=== PATIENT | female | born 1985 | race Caucasian/White ===

== ENCOUNTER 2018-11-08 19:45 | Emergency (ER) | payer BC ==
--- NOTE | 2018-11-08 19:50 | PDOC ---
Rapid Medical Evaluation Time Seen by Provider: 11/08/18 19:48 Medical Evaluation: 11/08/18 19:48 HPI:c/o bloody stool and bloody vomit works in health care; no bacteria in stool as per PCP feeling sick over the last 2 weeks PE: No gross deficits ORDERS: Labs Discharge Disposition - Diagnosis Vomiting and diarrhea - Referrals - Patient Instructions - Post Discharge Activity
[2018-11-08 19:51] VITALS: BMI 27.3
[2018-11-08 20:57] LABS: BASO % 0.7 % (0-2.0); EOS % 1.7 % (0-4.5); HEMATOCRIT 41.8 % (32.4-45.2); HEMOGLOBIN 13.9 GM/dL (10.7-15.3); LYMPH % 43.1 % (8-40); MCH 30.1 pg (25.7-33.7); MCHC 33.2 g/dl (32.0-36.0); MEAN CELL VOLUME 90.5 fl (80-96); MEAN PLT VOLUME 8.5 fl (7.5-11.1); NEUT % 47.5 % (42.8-82.8); PLATELET COUNT 287 K/MM3 (134-434); RBC 4.62 M/mm3 (3.60-5.2); RDW 14.2 % (11.6-15.6); WHITE BLOOD COUNT 4.7 K/mm3 (4.0-10.0)
--- NOTE | 2018-11-08 21:05 | PDOC ---
History of Present Illness - General Chief Complaint: Diarrhea Stated Complaint: diarrhea Time Seen by Provider: 11/08/18 19:48 History Source: Patient - History of Present Illness Initial Comments: 11/08/18 21:00 33 year old female c/o diarrhea x 2 weeks yesterday with one episode of bloody diarrhea. reports also vomiting blood tinged x 1 .today with 2 episodes of diarrhea. denies any recent travel, recent change in diet, patient reports decreased appetite. one episode of nausea. Past History - Past Medical History Allergies/Adverse Reactions: Allergies Allergy/AdvReac Type Severity Reaction Status Date / Time No Known Allergies Allergy Verified 11/08/18 19:51 Home Medications: Ambulatory Orders Famotidine [Pepcid] 40 mg PO DAILY #20 tablet 11/08/18 Ondansetron HCl [Zofran] 4 mg PO DAILY PRN #7 tablet 11/08/18 Asthma: Yes COPD: No - Suicide/Smoking/Psychosocial Hx Smoking History: Current every day smoker Information on smoking cessation initiated: No Review of Systems - Review of Systems Able to Perform ROS?: Yes Is the patient limited Nigerian proficient: No Constitutional: No: Symptoms Reported, See HPI, Chills, Diaphoresis, Fever, Loss of Appetite, Malaise, Night Sweats, Weakness, Weight Stable, Unintentional Wgt. Loss, Unexplained wgt Loss, Other ABD/GI: Yes: Diarrhea, Nausea, Poor Appetite, Poor Fluid Intake, Vomiting *Physical Exam - Vital Signs Last Vital Signs Temp Pulse Resp BP Pulse Ox 98.7 F 81 18 133/98 99 11/08/18 19:48 11/08/18 19:48 11/08/18 19:48 11/08/18 19:48 11/08/18 19:48 - Physical Exam General Appearance: Yes: Appropriately Dressed Respiratory/Chest: positive: Lungs Clear, Normal Breath Sounds Rectal Exam: positive: heme negative stool, normal exam, normal rectal tone. negative: hemorrhoids ED Treatment Course - LABORATORY CBC & Chemistry Diagram: 11/08/18 20:41 11/08/18 21:30 Progress Note - Progress Note Progress Note: vomiting and diarrhea P: IVF famotidine zofran ua: currently menstruating. no urinary symptoms. *DC/Admit/Observation/Transfer Diagnosis at time of Disposition: Vomiting and diarrhea - Discharge Dispostion Disposition: HOME - Prescriptions Prescriptions: Famotidine [Pepcid] 40 mg PO DAILY #20 tablet Ondansetron HCl [Zofran] 4 mg PO DAILY PRN #7 tablet PRN Reason: Nausea - Referrals Referrals: ON STAFF,NOT [Primary Care Provider] - - Patient Instructions Printed Discharge Instructions: Webster Diet Additional Instructions: Additional Instructions: * Please call your personal physician to report your Emergency Department visit and to report your progress, if any. * If there is no improvement in symptoms in 2 days call your physician. * Return to the Emergency Department for any worsening symptoms. - Post Discharge Activity Forms/Work/School Notes: Back to Work
[2018-11-08 21:12] LABS: INR 0.93 (0.83-1.09)
[2018-11-08 21:14] LABS: RETICULOCYTES 1.24 % (0.5-1.5)
[2018-11-08] MEDS ORDERED: ONDANSETRON 4 MG/2 ML VIAL IVPB ONE (21:14)
[2018-11-08] MEDS ORDERED: FAMOTIDINE 20 MG/50 ML IVPB 20 MG/50 ML MG IVPB ONE ×2 (21:14→22:27)
[2018-11-08] MEDS ORDERED: SODIUM CHLORIDE 1,000 ML IV STA (21:14)
[2018-11-08 22:07] LABS: EPI CELLS 14.4 /HPF (0-5/HPF); HYALINE CASTS 12 /lpf (0-8); PH,URINE 5.5 (5.0-8.0); URINE APPEARANCE CLOUDY; URINE BILIRUBIN NEGATIVE (NEGATIVE); URINE COLOR YELLOW; URINE GLUCOSE (UA) NEGATIVE (NEGATIVE); URINE KETONE 1+ (NEGATIVE); URINE LEUK ESTERASE 1+ (NEGATIVE); URINE NITRITE NEGATIVE (NEGATIVE); URINE PROTEIN TRACE (NEGATIVE); URINE UROBILINOGEN 0.2 mg/dL (0.2-1.0); URINE WBC 8 /hpf (0-5)
[2018-11-08 22:14] LABS: ALBUMIN 4.2 g/dl (3.4-5.0); BILIRUBIN,TOTAL 0.7 mg/dL (0.2-1); BLOOD UREA NITROGEN 14.1 mg/dL (7-18); CREATININE 0.8 mg/dL (0.55-1.3); TOT PROT 7.6 g/dl (6.4-8.2)
[2018-11-08] MEDS ORDERED: ONDANSETRON 4 MG/2 ML VIAL ONE (22:26)
[2018-11-08 22:55] VITALS: BP 116/84; PULSE 79; TEMP 97.8
[2018-11-08 23:14] LABS: URINE RBC 19.4 /hpf (0-4)
== END 2018-11-08 22:55 | disposition home or self-care (01) ==
LOC: JER 19:45
PROC: 3E033GC Introduction of Other Therapeutic Substance into Peripheral Vein, Percutaneous Approach (ICD-10-PCS; principal; 2018-11-08)
PROC: 3E033GC Introduction of Other Therapeutic Substance into Peripheral Vein, Percutaneous Approach (ICD-10-PCS; 2018-11-08)
DX: R11.10 Vomiting, unspecified (principal); R19.7 Diarrhea, unspecified
CPT/HCPCS: 36415; 80053; 81003; 82272; 83690; 84703; 85025; 85044; 85610; 86850; 86900; 86901; 99282-25; J7030

== ENCOUNTER 2019-02-12 17:49 | Emergency (ER) | payer BC ==
[2019-02-12 17:56] VITALS: BP 115/74; PULSE 90; TEMP 97.9; BMI 27.4
--- NOTE | 2019-02-12 18:13 | PDOC ---
History of Present Illness - General Chief Complaint: Vaginal Bleeding Stated Complaint: VAGINAL BLEEDING/ABD PAIN Time Seen by Provider: 02/12/19 18:12 History Source: Patient Past History - Past Medical History Allergies/Adverse Reactions: Allergies Allergy/AdvReac Type Severity Reaction Status Date / Time No Known Allergies Allergy Verified 02/12/19 17:56 Home Medications: Ambulatory Orders Famotidine [Pepcid] 40 mg PO DAILY #20 tablet 11/08/18 Ondansetron HCl [Zofran] 4 mg PO DAILY PRN #7 tablet 11/08/18 Metoclopramide HCl [Reglan -] 10 mg PO DAILY #10 tablet 02/12/19 Asthma: Yes COPD: No - Psycho Social/Smoking Cessation Hx Smoking History: Never smoked *Physical Exam - Vital Signs Last Vital Signs Temp Pulse Resp BP Pulse Ox 97.9 F 90 18 115/74 100 02/12/19 17:52 02/12/19 17:52 02/12/19 17:52 02/12/19 17:52 02/12/19 17:52 ED Treatment Course - LABORATORY CBC & Chemistry Diagram: 02/12/19 18:33 02/12/19 18:33 Discharge - Discharge Information Problems reviewed: Yes Clinical Impression/Diagnosis: Vomiting and diarrhea Condition: Stable Disposition: HOME - Admission No - Additional Discharge Information Prescriptions: Metoclopramide HCl [Reglan -] 10 mg PO DAILY #10 tablet - Follow up/Referral Referrals: Ricardo Santos [Primary Care Provider] - - Patient Discharge Instructions Patient Printed Discharge Instructions: DI for Threatened Additional Instructions: You were seen in the ER for abdominal pain and vaginal bleeding. Your bloodwork was normal. Your ultrasound showed normal heartrate in the fetus, who was also moving normally. Your pelvic exam showed a small amount of blood. Please see your uplands division director as soon as possible, in the next 2 days. Please return to the ER if you develop high fevers, weakness, chest pain, shortness of breath, severe abdominal pain, or vaginal bleeding that fills a pad at once. - Post Discharge Activity Work/Back to School Note: Back to Work
[2019-02-12] MEDS ORDERED: METOCLOPRAMIDE HCL INJECTION 10 MG/2 ML VIAL IVPUSH ONE (18:15)
[2019-02-12] MEDS ORDERED: METOCLOPRAMIDE HCL INJECTION 10 MG/2 ML VIAL ONE (18:19)
[2019-02-12] MEDS ORDERED: ACETAMINOPHEN INJECTION 100 ML IVPB ONE ×2 (18:20→19:50)
--- NOTE | 2019-02-12 18:24 | PDOC ---
Attending Attestation - Resident Resident Name: Emmett Steel - ED Attending Attestation I have performed the following: I have examined & evaluated the patient, The case was reviewed & discussed with the resident, I agree w/resident's findings & plan - HPI HPI: 02/12/19 18:26 33 YOF at presenting with vaginal spotting ultrasound today, well being after sono today, n/v x 5 episodes, mild vaginal spotting intermittent epigastric cramping. ate gyro last night. no other sick contacts. OB Dr Campo, in [place] rx'd anti nausea medicine, which she hasn't tried yet. denies trauma or intercourse. 02/12/19 19:08 - Physicial Exam PE: 02/12/19 18:24 Agree with the resident's HPI and PE as documented in the electronic medical record. NAD, well appearing, EOMI, PERRL, nl conjunctiva, anicteric; neck supple. lungs clear, RRR, abdomen soft diffusely tender, worse in epigastrium and periumbilical region. No rebound, no guarding. Back nontender. MATTHEWS x4, no focal neuro deficits. No peripheral edema. normal color for ethnicity, WWP. , pelvic exam performed with myself as slab stripper with resident, see documentation: normal external genitalia, no lesions, scant blood vaginal vault with brown discharge at cervical os, no CMT, no adnexal tenderness. Smooth and pink cervix, closed. 02/12/19 18:31 02/12/19 19:09 02/13/19 17:09 - Medical Decision Making 02/12/19 18:24 Vital Signs Temp Pulse Resp BP Pulse Ox 97.9 F 90 18 115/74 100 02/12/19 17:52 02/12/19 17:52 02/12/19 17:52 02/12/19 17:52 02/12/19 17:52 DDx female VB: ectopic , miscarriage, demise, subchorionic hematoma, retained POC, normal first trimester bleeding, UTI in in . Fibroid uterus, vaginitis, infection, electrolyte/metabolic derangements, anemia. Rh positive, no rhogam indicated - from previous. VS wnl, normotensive, no tachy or hypoxia/respiratory distress. abdomen benign on reeval and no peritoneal findings, no VB here, controlled Beta hcg appropriate. remainder of labs wnl. LFTs/lipase wnl. UA prelim neg for bacteria/infection, Bedside pelvic US performed for female with VB and /or abdominal pain. views obtained: tv and sagittal uterus, findings include live IUP visualized dated at, FHR 175-180 bpm. Impression: live IUP. OB followup, with Dr Campo bleeding precautions; return to ED if persistent and heavy vaginal bleeding, persistent pelvic pain not relieved by your prescribed medications, dizziness, shortness of breath, new and persistent fevers, other foul smelling discolored vaginal discharge, or for any other concerns. rx reglan prn for n/v in , also has antiemetic at home rx'd by her primary chief operator lock tender. 02/12/19 18:31 02/12/19 19:07 02/13/19 17:10 02/13/19 17:10
[2019-02-12] MEDS ORDERED: SODIUM CHLORIDE 0.9% 500 ML INFUS.BAG IV ONE (18:28)
[2019-02-12] MEDS ORDERED: FAMOTIDINE 20 MG/50 ML IVPB 20 MG/50 ML MG IVPB ONE ×2 (18:28→18:37)
[2019-02-12] MEDS ORDERED: MAG HYDROX/AL HYDROX/SIMETH 30 ML UNIT-DOSE CUP PO ONE (18:28)
[2019-02-12] MEDS ORDERED: MAG HYDROX/AL HYDROX/SIMETH 30 ML UNIT-DOSE CUP ONE (18:37)
[2019-02-12 18:42] LABS: URINE APPEARANCE CLEAR; URINE BILIRUBIN NEGATIVE (NEGATIVE); URINE COLOR YELLOW; URINE GLUCOSE (UA) NEGATIVE (NEGATIVE); URINE KETONE 1+ (NEGATIVE); URINE LEUK ESTERASE NEGATIVE (NEGATIVE); URINE NITRITE NEGATIVE (NEGATIVE); URINE PROTEIN NEGATIVE (NEGATIVE)
[2019-02-12 18:45] LABS: BASO % 0.2 % (0-2.0); EOS % 0.6 % (0-4.5); HEMATOCRIT 39.8 % (32.4-45.2); HEMOGLOBIN 13.3 GM/dL (10.7-15.3); LYMPH % 16.8 % (8-40); MCH 29.3 pg (25.7-33.7); MCHC 33.3 g/dl (32.0-36.0); MEAN CELL VOLUME 87.8 fl (80-96); MEAN PLT VOLUME 8.2 fl (7.5-11.1); MONO % 6.7 % (3.8-10.2); NEUT % 75.7 % (42.8-82.8); PLATELET COUNT 208 K/MM3 (134-434); RBC 4.53 M/mm3 (3.60-5.2); WHITE BLOOD COUNT 5.3 K/mm3 (4.0-10.0)
[2019-02-12] MEDS ORDERED: ACETAMINOPHEN 1000 MG/100 ML VIAL (NON FORMULARY) IVPB ONE (19:07)
[2019-02-12 19:16] LABS: ALBUMIN 3.9 g/dl (3.4-5.0); BILIRUBIN,TOTAL 0.6 mg/dL (0.2-1); BLOOD UREA NITROGEN 9.8 mg/dL (7-18); CALCIUM 8.8 mg/dL (8.5-10.1); CREATININE 0.6 mg/dL (0.55-1.3); POTASSIUM 3.9 mmol/L (3.5-5.1)
== END 2019-02-12 20:07 | disposition home or self-care (01) ==
LOC: JER 17:49
PROC: BY49ZZZ Ultrasonography of First Trimester, Single Fetus (ICD-10-PCS; principal; 2019-02-12)
PROC: 3E033GC Introduction of Other Therapeutic Substance into Peripheral Vein, Percutaneous Approach (ICD-10-PCS; 2019-02-12)
PROC: 3E033NZ Introduction of Analgesics, Hypnotics, Sedatives into Peripheral Vein, Percutaneous Approach (ICD-10-PCS; 2019-02-12)
DX: O26.891 Other specified pregnancy related conditions, first trimester (principal); O20.0 Threatened abortion; R11.2 Nausea with vomiting, unspecified; R19.7 Diarrhea, unspecified; Z3A.11 11 weeks gestation of pregnancy
CPT/HCPCS: 36415; 76815; 80053; 81003; 83690; 84702; 85025; 87086; 87186; 99284-25; J0131

== ENCOUNTER 2019-08-29 15:40 | Inpatient (IN) | payer BC ==
[2019-08-29] MEDS ORDERED: OXYTOCIN 30 UNITS in 0.9% NS 30 UNIT/500 ML INFUS.BAG IVPB SCH (17:00)
[2019-08-29] MEDS ORDERED: ELECTROLYTE-148 SOLN 1,000 ML IV SCH (17:00)
[2019-08-29 17:01] VITALS: BMI 29.2
[2019-08-29 17:02] LABS: BASO % 0.5 % (0-2.0); EOS % 2.1 % (0-4.5); HEMATOCRIT 39.7 % (32.4-45.2); HEMOGLOBIN 13.3 GM/dL (10.7-15.3); LYMPH % 28.9 % (8-40); MCH 29.2 pg (25.7-33.7); MCHC 33.6 g/dl (32.0-36.0); MEAN CELL VOLUME 86.9 fl (80-96); MEAN PLT VOLUME 9.3 fl (7.5-11.1); MONO % 6.8 % (3.8-10.2); NEUT % 61.7 % (42.8-82.8); PLATELET COUNT 203 K/MM3 (134-434); RBC 4.57 M/mm3 (3.60-5.2); RDW 13.9 % (11.6-15.6); WHITE BLOOD COUNT 7.3 K/mm3 (4.0-10.0)
[2019-08-29 17:13] LABS: INR 0.96 (0.83-1.09); PROTHROMBIN TIME (PATIENT) 11.3 SEC (9.7-13.0)
[2019-08-29] MEDS: ALBUTEROL SO4 HFA INHALER IH PRN (17:15)
[2019-08-29] MEDS ORDERED: ALBUTEROL SO4 HFA INHALER IH PRN (17:26)
[2019-08-29 17:27] LABS: BLOOD UREA NITROGEN 6.2 mg/dL (7-18); CALCIUM 8.7 mg/dL (8.5-10.1); CREATININE 0.5 mg/dL (0.55-1.3); POTASSIUM 3.6 mmol/L (3.5-5.1)
[2019-08-29] MEDS ORDERED: OXYTOCIN 30 UNITS in 0.9% NS 30 UNIT/500 ML INFUS.BAG IVPB ONE (18:01)
--- NOTE | 2019-08-29 18:56 | HP ---
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: Alzheimer's, CVA, Dementia, Migraine, Multiple Sclerosis, Peripheral Neuropathy, Parkinson's, Seizure, Syncope, TIA, Vertigo, Other Cardiovascular: No: AFIB, Aneurysm, Aortic Insufficiency, Aortic Stenosis, CAD, CHF, Deep Vein Thrombosis, HTN, Hyperlipdemia, AK, Mitral Insufficiency, Mitral Stenosis, Murmur, Pulmonary Hypertension, Other Pulmonary: No: Asthma, Bronchitis, Cancer, COPD, O2 Dependent, Pneumonia, Previously Intubated, Pulmonary Embolus, Pulmonary Fibrosis, Sleep Apnea, Other Gastrointestinal: No: Ascites, Cancer, Constipation, Crohn's Disease, Diverticulitis, Diverticulosis, Esophageal Varices, Gastritis, GERD, GI Bleed, Hemorrhoids, Hiatal Hernia, Inflamatory Bowel Disease, Irritable Bowel Disease, Pancreatitis, Peptic Ulcer Disease, Ulcerative Colitis, Other Hepatobiliary: No: Cirrhosis, Cholelithiasis, Cholecystitis, Choledocholit hiasis, Hepatitis A, Hepatitis B, Hepatitis C, Other Renal/: No: Renal Failure, Renal Inusuff, BPH, Cancer, Hematuria, Hemodialysis, Neurogenic Bladder, Renal Calculi, UTI, Other ...: 5 ...Para: 2 ...: 2 ...Spon : 2 ...Living Children: 2 ...Multiple Gestation: 0 ... Weeks Gestation by Dates: 40.2 ...EDC by Dates: 08/27/19 ...EDC by Sono: 08/27/19 Heme/Onc: No: Anemia, B12 Deficiency, Bleeding Disorder, Cancer, Current Chemotherapy, Current Radiation Therapy, Hemochromatosis, Hypercoaguable State, Myeloproliferative Synd, Sickle Cell Disease, Sickle Cell Trait, Thrombocytopenia, Other Infectious Disease: No: AIDS, C-Diff, Herpes Zoster, HIV, MRSA, STD's, Tuberculosis, VREF, Other Psych: No: Addictions, Anxiety, Bipolar, Depression, Panic, Psychosis, Schizophrenia, Other Musculoskeletal: No: Bursitis, Chronic low back pain, Hemiparesis, Hemiplegia, Osteoarthritis, Paraplegia, Other Rheumatology: No: Fibromyalgia, Gout, Lupus, Rheumatoid Arthritis, Sarcoidosis, Vasculitis, Other ENT: No: Allergic Rhinitis, Sinusitis, Other Endocrine: No: Gl[place]'s Disease, Symsonia's Disease, Diabetes Insipidus, Diabetes Mellitus, Hyperparathyroidism, Hyperthyroidism, Hypothyroidism, Osteopenia, SIADH, Other Dermatology: No: Basal Cell, Cellulitis, Eczema, Melanoma, Psoriasis, Squamous Cell, Other - Past Surgical History Past Surgical History: Yes: None Hx Myomectomy: No Hx Transabdominal Cerclage: No - Advance Directives Advance Directives: Yes: Living Will - Smoking History Smoking history: Never smoked Have you smoked in the past 12 months: No - Alcohol/Substance Use Hx Alcohol Use: No History of Substance Use: reports: None - Social History Usual Living Arrangement: Yes: With Significant Other Do you think of yourself as: Straight/Heterosexual ADL: Independent History of Recent Travel: No Home Medications - Allergies Allergies/Adverse Reactions: Allergies Allergy/AdvReac Type Severity Reaction Status Date / Time No Known Allergies Allergy Verified 02/12/19 17:56 - Home Medications Home Medications: Ambulatory Orders Vitamins (Sjr) - 1 tab PO DAILY 08/29/19 Family Medical History Family History: Denies Review of Systems - Review of Systems Constitutional: reports: No Symptoms Eyes: reports: No Symptoms HENT: reports: No Symptoms Neck: reports: No Symptoms Cardiovascular: reports: No Symptoms Respiratory: reports: No Symptoms Gastrointestinal: reports: No Symptoms Genitourinary: reports: No Symptoms Breasts: reports: No Symptoms Reported Musculoskeletal: reports: No Symptoms Integumentary: reports: No Symptoms Neurological: reports: No Symptoms Endocrine: reports: No Symptoms Hematology/Lymphatic: reports: No Symptoms Psychiatric: reports: No Symptoms Physical Exam - Maternity Vital Signs: Vital Signs Temperature 98.4 F 08/29/19 18:00 Pulse Rate 90 08/29/19 18:00 Respiratory Rate 08/29/19 18:00 Blood Pressure 111/67 08/29/19 18:00 O2 Sat by Pulse Oximetry (%) Constitutional: Yes: Well Nourished, No Distress, Calm Eyes: Yes: WNL, Conjunctiva Clear, EOM Intact HENT: Yes: WNL, Atraumatic, Normocephalic Neck: Yes: WNL, Supple, Trachea Midline Cardiovascular: Yes: WNL, Regular Rate and Rhythm Lungs: Clear to auscultation Breast(s): Yes: WNL - Abdominal Exam/OB Number of Fetuses: Single Presentation: Vertex Contractions: Yes Regularity: Irregular Intensity: Unaware Monitor Mode: External Heart Rate Location: [facility] Category: I Accelerations: Uniform Decelerations: None - Vaginal Exam/OB Vaginal Bleeding: No Speculum Exam: No Dilatation (cm): 2 Effacement (%): 60 Amniotic Membrane Status: Ruptured Nitrazine Test: Positive Amniotic Fluid: Yes: Clear Presentation: Vertex/Position Station: -2 - Physical Exam Musculoskeletal: Yes: WNL Extremities: Yes: WNL Edema: Yes Edema: LUE: 1+, RUE: 1+, LLE: 1+, RLE: 1+ Integumentary: Yes: WNL Deep Tendon Reflex Grade: Normal +2 ...Motor Strength: WNL Psychiatric: Yes: WNL, Alert, Oriented - Labs Lab Results: CBC, BMP 08/29/19 16:05 08/29/19 16:05 Hemorrhage Risk Assessment - Risk Factors Medium Risk Factors: Yes: None High Risk Factors: Yes: None Risk Score: 1 Risk Level: Medium Risk Assessment/Plan for pitoicn, anticipate
[2019-08-29] MEDS ORDERED: DEXTROSE 5%-LACTATED RINGERS 1,000 ML IV SCH (19:00)
[2019-08-29] MEDS ORDERED: FENTANYL/BUPIVACAINE/NS/PF - PCEA - 50 ML DISP.SYRIN EP ONE (21:11)
[2019-08-29] MEDS ORDERED: PCA PUMP NR ONE (21:11)
[2019-08-29] MEDS ORDERED: NALOXONE HCL 0.4 MG/ML VIAL IVPUSH PRN (21:13)
[2019-08-29] MEDS ORDERED: FENTANYL/BUPIVACAINE/NS/PF - PCEA - 50 ML DISP.SYRIN EP SCH (21:15)
[2019-08-30] MEDS ORDERED: FENTANYL/BUPIVACAINE/NS/PF - PCEA - 50 ML DISP.SYRIN EP ONE ×2 (00:33→03:55)
--- NOTE | 2019-08-30 05:16 | PN ---
Progress Note (short form) - Note Progress Note: 130 am 4 cm, continue pitocin, still same cervix, asking for top off, uc q 3 min,
[2019-08-30] MEDS ORDERED: SUCCINYLCHOLINE CHLORIDE 200 MG/10 ML SYRINGE ONE (05:18)
[2019-08-30] MEDS ORDERED: PROPOFOL 20 ML ONE (05:18)
--- NOTE | 2019-08-30 05:18 | PN ---
Progress Note (short form) - Note Progress Note: 5 am, , recurrent late deccel, still 4 cm cervix, uc q 3 min, top off given for pain, we thought it is from top off for deccels, but still cat 2 nst after 45 min, will do c sections
[2019-08-30] MEDS ORDERED: OXYTOCIN 20 UNITS in 0.9% NS 20 UNIT/1,000 ML INFUS.BAG IV ONE ×3 (05:30→07:46)
[2019-08-30] MEDS ORDERED: morphine SULFATE/Preservative Free 0.5 MG/ML (1cc Syringe) ONE ×5 (05:44)
[2019-08-30] MEDS ORDERED: MIDAZOLAM HCL 2 MG/2 ML SINGLE DOSE VIAL ONE (05:52)
[2019-08-30] MEDS ORDERED: METHYLERGONOVINE MALEATE 0.2 MG/1 ML AMP IM PRN (06:49)
[2019-08-30] MEDS ORDERED: oxyCODONE HCL 5 MG TABLET PO PRN (06:49)
--- NOTE | 2019-08-30 06:55 | OP ---
Operative Note - Note: Operative Date: 08/30/19 Pre-Operative Diagnosis: non reassuring fh tracing Operation: primary lt c s Findings: ca both feet x 2 Post-Operative Diagnosis: Same as Pre-op Surgeon: Melvin Campo Trust Advisor: Prasanna Rios Anesthesiologist/PRODUCT DISTRIBUTION SPECIALIST: Shahab Shah Anesthesia: Epidural Estimated Blood Loss (mls): 350 Operative Report Dictated: Yes
[2019-08-30] MEDS ORDERED: OXYTOCIN 20 UNITS in 0.9% NS 20 UNIT/1,000 ML INFUS.BAG IV SCH (07:00)
[2019-08-30] MEDS ORDERED: IBUPROFEN 800 MG/8 ML IJ IVPB ONE (07:24)
[2019-08-30] MEDS: IBUPROFEN 800 MG/8 ML IJ IVPB PRN ×2 (07:30→15:07)
[2019-08-30 08:59] LABS: POC NITRAZINE POS
[2019-08-30] MEDS: PRENATAL VITAMINS W/ FOLIC ACID TABLET (FP) PO SCH (10:18)
[2019-08-30] MEDS: oxyCODONE HCL 5 MG TABLET PO PRN (10:44)
[2019-08-30] MEDS: ALBUTEROL SO4 HFA INHALER IH PRN (10:44)
[2019-08-30] MEDS: SIMETHICONE 80 MG TAB.CHEW (FP) PO PRN ×2 (18:13→20:19)
[2019-08-30] MEDS: ACETAMINOPHEN 325 MG TABLET (FP) PO PRN (18:14)
[2019-08-30] MEDS: IBUPROFEN 600 MG TABLET (FP) PO PRN (20:18)
[2019-08-30] MEDS ORDERED: SENNOSIDES/DOCUSATE COMBO (SENNA PLUS) TABLET (UD) PO PRN (22:00)
[2019-08-31] MEDS: IBUPROFEN 800 MG/8 ML IJ IVPB PRN (00:41)
[2019-08-31] MEDS: BISACODYL 10 MG SUPP.RECT RC PRN ×2 (05:58→16:30)
[2019-08-31] MEDS: SIMETHICONE 80 MG TAB.CHEW (FP) PO PRN ×4 (05:58→20:44)
[2019-08-31] MEDS: IBUPROFEN 600 MG TABLET (FP) PO PRN ×4 (05:59→20:44)
[2019-08-31] MEDS: oxyCODONE HCL 5 MG TABLET PO PRN ×4 (05:59→20:44)
[2019-08-31 08:26] LABS: BASO % 0.2 % (0-2.0); EOS % 0.6 % (0-4.5); HEMATOCRIT 32.7 % (32.4-45.2); HEMOGLOBIN 10.9 GM/dL (10.7-15.3); LYMPH % 10.5 % (8-40); MCHC 33.4 g/dl (32.0-36.0); MEAN CELL VOLUME 86.7 fl (80-96); MEAN PLT VOLUME 8.4 fl (7.5-11.1); MONO % 4.9 % (3.8-10.2); NEUT % 83.8 % (42.8-82.8); PLATELET COUNT 185 K/MM3 (134-434); RBC 3.77 M/mm3 (3.60-5.2); WHITE BLOOD COUNT 10.7 K/mm3 (4.0-10.0)
--- NOTE | 2019-08-31 09:15 | OP ---
DATE OF OPERATION: 08/30/2019 PREOPERATIVE DIAGNOSIS: Category 2 nonreassuring heart rate tracing and remote from delivery. POSTOPERATIVE DIAGNOSIS: Cord around the foot twice for both feet. PROCEDURE: Primary low transverse section. SURGEON: Melvin Sorensen MD BRUISE TRIMMER: AVIS Talamantes BLOOD LOSS: About 350. PATHOLOGY: Placenta. INDICATIONS: [id number] female patient, 40 weeks and 3 days , came into the hospital with spontaneous rupture of membranes on August 28 at about 1:00 in the afternoon, and patient's cervix about 1-2 cm, and patient had Pitocin started, and the patient progressed very slowly to 3-4 cm around 7:00 and progressed to be 3-4 cm still around 10:30, 11:00. Patient already had epidural, and the patient still the same around 2:00 in the morning. About 5:00 in the morning patient is complaining of a lot of pain. Epidural is wearing off. Top-off was given. At this time patient had recurrent late decelerations, category 2 tracing for almost 45 minutes to an hour. The patient's cervix still 3-4 cm, -2, and 60% and very thick and is remote on delivery around 5:00, and decision was made at this time with nonreassuring heart rate tracing and remote from delivery. DESCRIPTION OF PROCEDURE: Patient was taken to the OR, placed on the operating table in supine position. Patient already had epidural anesthesia, so patient has more top-off and patient is comfortable. Patient's abdomen and pelvis were prepped and draped in the usual sterile manner. Pfannenstiel incision was made. Incisions were made through the skin and subcutaneous tissue until the fascia was nicked in the midline and the fascia extended bilaterally. Intraperitoneal cavity was entered. Bladder flap was not created. Low transverse segment was entered, baby delivered from LOT presentation, and cord around both feet twice was seen, and baby was handed over to construction electrician after umbilical cord doubly clamped and cut. Placenta was removed, uterus closed in single layer, first layer interlocking Vicryl sutures. Good hemostasis. Both gutters cleaned. Both ovaries, fallopian tubes, and uterus were within normal limits. No complications, draining clear urine. Blood loss about 350 mL. The peritoneum was closed. Fascia was closed. Skin was closed, transferred to recovery room in stable condition. MELVIN SORENSEN MD [id number]
[2019-08-31] MEDS ORDERED: DIPHTH,PERTUSS(ACELL),TET 0.5 ML DISP.SYRIN IM ONE (10:00)
[2019-08-31] MEDS: PRENATAL VITAMINS W/ FOLIC ACID TABLET (FP) PO SCH (10:19)
[2019-08-31 11:07] VITALS: TEMP 98
[2019-08-31 20:18] VITALS: PULSE 88
--- NOTE | 2019-08-31 20:20 | PN ---
Post Progress Note Post Day: 1 Type of Delivery: Primary C/S Vital Signs: Vital Signs Temperature 98.0 F 08/31/19 20:17 Pulse Rate 88 08/31/19 20:17 Respiratory Rate 20 08/31/19 20:17 Blood Pressure 116/72 08/31/19 20:17 O2 Sat by Pulse Oximetry (%) 99 08/30/19 08:39 Breast Exam: Yes: Soft Uterus: Yes: Fundus Firm, Fundus below umbilicus, Non-tender Incision: Yes: Dressing dry and intact, Sutures intact Abdomen/GI: Yes: Abdomen soft, Passing flatus, Tolerating PO Lochia: Yes: Serosa Lochia, amount: Small Extremities: Yes: Calves non-tender Perineum: Yes: Intact Activity: Ambulating (dc pt home tomorrow) - Labs Labs: CBC WBC 10.7 K/mm3 (4.0-10.0) H 08/31/19 08:04 RBC 3.77 M/mm3 (3.60-5.2) 08/31/19 08:04 Hgb 10.9 GM/dL (10.7-15.3) 08/31/19 08:04 Hct 32.7 % (32.4-45.2) D 08/31/19 08:04 MCV 86.7 fl (80-96) 08/31/19 08:04 MCH 29.0 pg (25.7-33.7) 08/31/19 08:04 MCHC 33.4 g/dl (32.0-36.0) 08/31/19 08:04 RDW 14.0 % (11.6-15.6) 08/31/19 08:04 Plt Count 185 K/MM3 (134-434) 08/31/19 08:04 MPV 8.4 fl (7.5-11.1) 08/31/19 08:04 Absolute Neuts (auto) 9.0 K/mm3 (1.5-8.0) H 08/31/19 08:04 Neutrophils % 83.8 % (42.8-82.8) H D 08/31/19 08:04 Lymphocytes % 10.5 % (8-40) D 08/31/19 08:04 Monocytes % 4.9 % (3.8-10.2) 08/31/19 08:04 Eosinophils % 0.6 % (0-4.5) 08/31/19 08:04 Basophils % 0.2 % (0-2.0) 08/31/19 08:04 Nucleated RBC % 0 % (0-0) 08/31/19 08:04
--- NOTE | 2019-08-31 20:23 | DS ---
Physical Exam-MEMBER CERTIFICATION MANAGER Vital Signs: Vital Signs Temperature 98.0 F 08/31/19 20:17 Pulse Rate 88 08/31/19 20:17 Respiratory Rate 20 08/31/19 20:17 Blood Pressure 116/72 08/31/19 20:17 O2 Sat by Pulse Oximetry (%) 99 08/30/19 08:39 Constitutional: Yes: Well Nourished, No Distress, Calm Eyes: Yes: WNL, Conjunctiva Clear, EOM Intact HENT: Yes: WNL, Atraumatic, Normocephalic Neck: Yes: WNL, Supple, Trachea Midline Cardiovascular: Yes: WNL, Regular Rate and Rhythm Respiratory: Yes: WNL, Regular, CTA Bilaterally Gastrointestinal: Yes: WNL, Normal Bowel Sounds, Soft ...Rectal Exam: Yes: WNL Renal/: Yes: WNL Pelvis: Yes: WNL External Genitalia: Yes: Normal Internal Exam Deferred: Yes Vaginal Exam: Yes: Normal Cervix: Yes: Normal Uterus: Yes: Normal Adnexa: Normal: Bilateral ....Post : Yes: Uterus firm, Uterus non-tender Breast(s): Yes: WNL Musculoskeletal: Yes: WNL Extremities: Yes: WNL Edema: Yes Edema: LUE: 1+, RUE: 1+, LLE: 1+, RLE: 1+ Integumentary: Yes: WNL Wound/Incision: Yes: Clean/Dry, Well Approximated Neurological: Yes: WNL, Alert, Oriented ...Motor Strength: WNL Psychiatric: Yes: WNL, Alert, Oriented Labs: CBC, BMP 08/31/19 08:04 08/29/19 16:05 Delivery - Delivery Type of Anesthesia: Epidural Episiotomy/Laceration: None EBL (cc): 350 Delivery, Single - Stages of Labor Date 1st Stage Initiatied: 08/29/19 Time 1st Stage Initiated: 16:00 Date of Delivery: 08/30/19 Time of Delivery: 05:46 Time Placenta Delivered: 05:47 - Condition of Infant Surfacer Operator/Mailroom Manager Present: Yes Name: Nadira Lee Infant Gender: Male Weight: 3.033 kg Position: Left, OA Total Hours ROM (Hrs/Mins): 15HRS 2MIN - 1 Minute Total Score: 9 5 Minutes Total Score: 9 - Feeding Plan Initial Plan: Elected not to breastfeed exclusively throughout hospitalization Discharge Summary Problems reviewed: Yes Reason For Visit: ADMISSSION OF LABOR Procedures: Principal: primary lt c s Hospital Course: uneventful Condition: Good - Instructions Diet, Activity, Other Instructions: Physical activity Resume your normal everyday activity as tolerated no heavy lifting or exercise until seen by your surgeon. You may walk unlimited hellen of and climb stairs. You may resume driving the car when you feel safe and comfortable behind the wheel. No sexual activity as instructed. Wound care If you have a bandage, leave it on, and keep dry for 48-72 hours. After that time discard the outer bandage. If they are tapes on the skin under the out of bandage leave them in place. They will peel off in the next 7 to 10 days. Do Not Peel them off. You may shower the day after surgery. If there are tapes present on the skin, you may shower over them. Diet There are no dietary restrictions. Eat healthy, high-fiber foods. Drink 6 to 8 glasses of liquid each day. This will assist in keeping your bowels are regular. Pain management You may take Tylenol or acetaminophen or Ibuprofen (for example, Motrin, Advil etc.) from my pain prescription medication is ordered should be taken as prescribed for moderate to severe pain. Call MD for any of the following: call dr yates for 2 weeks appointment Severe pain not relieved by medication Fever of 101 or higher Excessive bleeding or drainage on dressing Inability to urinate Disposition: HOME - Home Medications Comprehensive Discharge Medication List: Ambulatory Orders Vitamins (Sjr) - 1 tab PO DAILY 08/29/19 Prescription Drug Monitoring Program (I-STOP) results: I-STOP reviewed and no issues identified
[2019-09-01] MEDS: IBUPROFEN 600 MG TABLET (FP) PO PRN ×3 (00:09→11:45)
[2019-09-01] MEDS: SIMETHICONE 80 MG TAB.CHEW (FP) PO PRN (00:10)
[2019-09-01] MEDS: ACETAMINOPHEN 325 MG TABLET (FP) PO PRN (00:10)
[2019-09-01] MEDS: oxyCODONE HCL 5 MG TABLET PO PRN (05:27)
[2019-09-01 09:53] VITALS: BP 95/67
[2019-09-01] MEDS: PRENATAL VITAMINS W/ FOLIC ACID TABLET (FP) PO SCH (10:22)
--- NOTE | 2019-09-01 18:25 | PATH ---
Surgical Pathology Report Patient Name: ROSALBA HERNANDEZ Med. Rec. #: [id number] /Age/Gender: 1985 (Age: 34) / F Account: [id number] Location: [facility] OBS/STATE ASSESSED PROPERTIES DIRECTOR Taken: 08/30/2019 Received: 08/30/2019 Reported: 09/01/2019 Physicians: Melvin Campo MD Specimen(s) Received PLACENTA Clinical History , 40.2 weeks nonreassuring heart rate, x2, SPAB x2, history of HSV 2, asthma Final Diagnosis PLACENTA: THIRD TRIMESTER PLACENTA WITH SUBCHORIONIC FIBRIN DEPOSITION. TRIVASCULAR CORD. MEMBRANES WITH NO DIAGNOSTIC ABNORMALITIES. Electronically Signed Prachi Guido M.D. Gross Description The specimen is received fresh labeled placenta and is a 468 gram, 20.0 x 14.0 x 2.4 cm. placenta with attached membranes and umbilical cord. The attached membranes are majano, translucent with focal opacities and insert marginally. The umbilical cord measures 30 cm. in length and averages 1 cm. in diameter. The cord inserts eccentrically, 5.5 cm. to the nearest margin. No true knots or strictures are identified. Cut surface of the umbilical cord reveals 3 vessels. The surface is fofana-blue with minimal fibrin deposition and appropriate caliber vessels. The maternal surface is red-brown with focal defects. Sectioning reveals red-brown, spongy parenchyma. No lesions are identified. Agricultural Equipment Mechanic sections are submitted in three cassettes as follows: 1- membrane rolls and umbilical cord; 2-3- full thickness sections of placenta. /08/31/2019 [facility]/08/31/2019
== END 2019-09-01 12:15 | disposition home or self-care (01) | DRG 788 ==
LOC: JLDR 15:40 → J3W 08-30 08:14
PROVIDERS: ADMIT Obstetrics & Gynecology; ATTEND Obstetrics & Gynecology
PROC: 3E033VJ Introduction of Other Hormone into Peripheral Vein, Percutaneous Approach (ICD-10-PCS; principal; 2019-08-29)
PROC: 10D00Z1 Extraction of Products of Conception, Low, Open Approach (ICD-10-PCS; 2019-08-30)
DX: O76 Abnormality in fetal heart rate and rhythm complicating labor and delivery (principal); O48.0 Post-term pregnancy; O61.0 Failed medical induction of labor; Z3A.40 40 weeks gestation of pregnancy; Z37.0 Single live birth; O69.89X0 Labor and delivery complicated by other cord complications, not applicable or unspecified; Z86.19 Personal history of other infectious and parasitic diseases
CPT/HCPCS: 36415; 80048; 83986-QW; 85025; 85610; 85730; 86780; 86850; 86900; 86901; 87389; 88307-TC; 90715; U0003